=== PATIENT | male | born 1945 | race Caucasian/White ===

== ENCOUNTER 2016-10-19 06:24 | Inpatient (IN) | payer MEDICARE ==
[2016-10-19] MEDS ORDERED: LABETALOL HCL INJ 20 MG/4 ML DISP.SYRIN IV ONE ×3 (06:56→09:04)
[2016-10-19 07:13] LABS: ABSOLUTE BASOPHILS # (AUTO) 0.1 10^3/uL (0.0-0.2); ABSOLUTE EOSINOPHILS # (AUTO) 0.2 10^3/uL (0.0-0.6); ABSOLUTE LYMPHOCYTES (AUTO) 2.3 10^3/uL (0.5-4.7); ABSOLUTE MONOCYTES (AUTO) 1.1 10^3/uL (0.1-1.4); ABSOLUTE NEUT (AUTO) 5.8 10^3/uL (1.7-8.2); BASOPHILS % (AUTO) 0.9 % (0-2); EOSINOPHILS % (AUTO) 2.4 % (0-6); HEMATOCRIT 46.8 % (37.9-51.0); HEMOGLOBIN 15.6 g/dL (13.5-17.0); LYMPHOCYTES % (AUTO) 24.1 % (13-45); MEAN CORPUSCULAR HEMOGLOBIN 30.5 pg (27.0-33.4); MEAN CORPUSCULAR HGB CONC 33.4 g/dL (32.0-36.0); MEAN CORPUSCULAR VOLUME 91 fl (80-97); MONOCYTES % (AUTO) 11.8 % (3-13); RED BLOOD COUNT 5.12 10^6/uL (4.35-5.55); RED CELL DISTRIBUTION WIDTH 13.7 % (11.5-14.0); SEGMENTED NEUTROPHILS % (AUTO) 60.8 % (42-78); WHITE BLOOD COUNT 9.6 10^3/uL (4.0-10.5)
--- NOTE | 2016-10-19 07:19 | RADIOLOGY REPORT (SQ) ---
EXAM DESCRIPTION: CT HEAD WITHOUT COMPLETED DATE/TIME: 10/19/2016 7:06 am REASON FOR STUDY: right sided weakness COMPARISON: None. TECHNIQUE: Axial images acquired through the brain without intravenous contrast. Images reviewed wi th bone, brain and subdural windows. Images stored on PACS. All CT scanners at this facility use dose modulation, iterative reconstruction, and/or weight based d osing when appropriate to reduce radiation dose to as low as reasonably achievable (ALARA). [facility]: Dose Right [facility]: CareDose [facility]: Dose Right [facility]: Teradose 4D [facility]: [employer] RADIATION DOSE: Up-to-date CT equipment and radiation dose reduction techniques were employed. CTDIv ol: 55.3 mGy. DLP: 1106 mGy-cm. mGy. LIMITATIONS: None. FINDINGS: VENTRICLES: Normal size and contour. CEREBRUM: Confluent diminished white matter density of both the cerebral hemispheres. Likely lacunar infarct of the right thalamus. Lacunar infarct of the anterior right external capsule. CEREBELLUM: No masses. No hemorrhage. No alteration of density. No evidence for acute infarction. EXTRAAXIAL SPACES: No fluid collections. No masses. Atherosclerosis. ORBITS AND GLOBE: No intra- or extraconal masses. Normal contour of globe without masses. CALVARIUM: No fracture. PARANASAL SINUSES: No fluid or mucosal thickening. SOFT TISSUES: No mass or hematoma. OTHER: No other significant finding. IMPRESSION: 1. Confluent diminished white matter density may indicate advanced white matter microan giopathy. Extensive differential diagnosis includes other white matter processes. Recommend MRI of the brain. 2. Lacunar infarcts of the right basal ganglia. TECHNICAL DOCUMENTATION: JOB ID: [id number] Quality ID # [id number]: Final reports with documentation of one or more dose reduction techniques (e.g., Au tomated exposure control, adjustment of the mA and/or kV according to patient size, use of iterative reconstruction technique) 2010 [employer]- All Rights Reserved
--- NOTE | 2016-10-19 07:20 | RADIOLOGY REPORT (SQ) ---
EXAM DESCRIPTION: CHEST SINGLE VIEW COMPLETED DATE/TIME: 10/19/2016 7:12 am REASON FOR STUDY: stroke COMPARISON: None. EXAM PARAMETERS: NUMBER OF VIEWS: One view. TECHNIQUE: Single frontal radiographic view of the chest acquired. RADIATION DOSE: NA LIMITATIONS: None. FINDINGS: LUNGS AND PLEURA: No opacities, masses or pneumothorax. No pleural effusion. MEDIASTINUM AND HILAR STRUCTURES: No masses. Contour normal. HEART AND VASCULAR STRUCTURES: Heart normal in size. Normal vasculature. BONES: No acute findings. HARDWARE: None in the chest. OTHER: No other significant finding. IMPRESSION: NO ACUTE RADIOGRAPHIC FINDING IN THE CHEST. TECHNICAL DOCUMENTATION: JOB ID: [id number]
[2016-10-19 07:21] LABS: ALANINE AMINOTRANSFERASE 26 U/L (21-72); ALBUMIN 4.2 g/dL (3.5-5.0); ALKALINE PHOSPHATASE 91 U/L (38-126); ANION GAP 11 (5-19); ASPARTATE AMINO TRANSFERASE 27 U/L (17-59); BILIRUBIN,DIRECT 0.4 mg/dL (0.0-0.4); BILIRUBIN,TOTAL 0.8 mg/dL (0.2-1.3); BLOOD UREA NITROGEN 25 mg/dL (7-20); CALCIUM 9.3 mg/dL (8.4-10.2); CARBON DIOXIDE 32 mmol/L (22-30); CHLORIDE 101 mmol/L (98-107); CREATINE KINASE 46 U/L (55-170); CREATININE RESULT 1.65 mg/dL (0.52-1.25); GLUCOSE 91 mg/dL (75-110); LIPASE 218.2 U/L (23-300); MAGNESIUM 2.3 mg/dL (1.6-2.3); POTASSIUM 3.7 mmol/L (3.6-5.0); PROTHROMBIN TIME 12.6 SEC (11.4-15.4); SODIUM 144.4 mmol/L (137-145); TOTAL PROTEIN 7.9 g/dL (6.3-8.2)
[2016-10-19 07:32] LABS: CREATINE KINASE MB 1.48 ng/mL (<4.55)
[2016-10-19 07:34] LABS: TROPONIN I 0.038 ng/mL
[2016-10-19 09:01] LABS: APPEARANCE,URINE CLEAR; BILIRUBIN,URINE NEGATIVE (NEGATIVE); GLUCOSE, URINE NEGATIVE (NEGATIVE); KETONES,URINE NEGATIVE (NEGATIVE); LEUKOCYTE ESTERASE,URINE NEGATIVE (NEGATIVE); NITRITE,URINE NEGATIVE (NEGATIVE); PROTEIN,URINE 100 mg/dL (NEGATIVE); URINE SPECIFIC GRAVITY 1.005; UROBILINOGEN,URINE NEGATIVE mg/dL (<2.0)
[2016-10-19] MEDS ORDERED: LISINOPRIL 10 MG TABLET PO ONE (09:47)
--- NOTE | 2016-10-19 10:10 | ER Document Report ---
ED General - General Chief Complaint: S/S of Possible Stroke Stated Complaint: POSSIBLE STROKE Time Seen by Provider: 10/19/16 06:48 TRAVEL OUTSIDE OF THE [place] IN LAST 30 DAYS: No - HPI Patient complains to provider of: Right sided weakness hypertension Notes: Patient is coming in for evaluation of right-sided weakness. According to the patient and daughter at bedside weakness started around 10:00 night prior to arrival. Patient arrived this morning around 6 AM 7 AM. Patient states history of mini strokes in the past. Otherwise patient has no complaints denies head pain chest pain abdominal pain patient does have a history of hypertension however did not take his blood pressure medications this morning. Systolic is greater than 200 upon evaluation. Patient otherwise alert oriented patient does have slight obviously speech and drooping of the right side of the face - Related Data Allergies/Adverse Reactions: guaifenesin [From [employer] ] Allergy (Verified 10/19/16 08:05) hydrocodone [From [employer] ] Allergy (Verified 10/19/16 08:05) potassium guaiacolsulfonate [From [employer] ] Allergy (Verified 10/19/16 08:05 ) Home Medications: Current Home Medications Aspirin [Ecotrin 81 mg EC Tablet] 81 mg PO DAILY 10/19/16 [History] Atorvastatin Calcium 40 mg PO DAILY 10/19/16 [History] Dextran 70/Hypromellose/Pf [Artificial Tears Drops] 1 each OP DAILY 10/19/16 [ History] Isosorbide Mononitrate [Isosorbide Mononitrate ER] 60 mg PO DAILY 10/19/16 [ History] Latanoprost [Latanoprost] 1 drop RT_EYE DAILY 10/19/16 [History] Lisinopril 10 mg PO BID 10/19/16 [History] Prednisolone Acetate [Inflamase 1% Oph Susp 5 ml] 1 drop RT_EYE DAILY 10/19/16 [ History] Triamterene/Hydrochlorothiazid [Triamterene-Hctz 37.5-25 mg Cp] 1 each PO DAILY 10/19/16 [History] Past Medical History - Social History Smoking Status: Unknown if Ever Smoked Family History: Reviewed & Not Pertinent Past Surgical History: Reports: Hx Kidney (Renal Surgery) Review of Systems - Review of Systems Constitutional: No symptoms reported EENT: No symptoms reported Cardiovascular: No symptoms reported Respiratory: No symptoms reported Gastrointestinal: No symptoms reported Genitourinary: No symptoms reported Male Genitourinary: No symptoms reported Musculoskeletal: Other - unilateral weakness on the right side Skin: No symptoms reported Hematologic/Lymphatic: No symptoms reported Neurological/Psychological: No symptoms reported Physical Exam - Vital signs Vitals: Temp Pulse Resp BP Pulse Ox 97.8 F 58 L 22 H 229/119 H 95 10/19/16 06:37 10/19/16 06:37 10/19/16 06:37 10/19/16 06:37 10/19/16 06:37 Interpretation: Normal - General General appearance: Appears well, Alert - HEENT Head: Normocephalic, Atraumatic Eyes: Normal Pupils: PERRL - Respiratory Respiratory status: No respiratory distress Chest status: Nontender Breath sounds: Normal Chest palpation: Normal - Cardiovascular Rhythm: Regular Heart sounds: Normal auscultation Murmur: No - Abdominal Inspection: Normal Distension: No distension Bowel sounds: Normal Tenderness: Nontender Organomegaly: No organomegaly - Back Back: Normal, Nontender - Extremities General upper extremity: Normal inspection, Nontender, Normal color, Normal ROM , Normal temperature General lower extremity: Normal inspection, Nontender, Normal color, Normal ROM , Normal temperature, Normal weight bearing. No: Fifi's sign - Neurological Neuro grossly intact: Yes Cognition: Normal Orientation: AAOx4 Sridhar Coma Scale Eye Opening: Spontaneous Mcdade Coma Scale Verbal: Oriented Mcdade Coma Scale Motor: Obeys Commands Sridhar Coma Scale Total: 15 Speech: Normal Motor strength normal: LUE, RUE, LLE, RLE Additional motor exam normals: Pronator drift. No: Equal residential plumber - Greater than right Sensory: Normal - Psychological Associated symptoms: Normal affect, Normal mood - Skin Skin Temperature: Warm Skin Moisture: Dry Skin Color: Normal Course - Re-evaluation Re-evalutation: 10/19/16 14:29 Patient examination is consistent with a stroke. CAT scan does show small chronic linear infarcts and diffuse white matter disease. Patient understands that at this time he is not a candidate for any thrombolytic therapy and that he is out of the window for time. Continue to get smaller doses of labetalol to lower the patient's blood pressure. Currently waiting on the family member to bring back current medications patient will be admitted to the hospitalist service for his stroke - Vital Signs Vital signs: Temp Pulse Resp BP Pulse Ox 98.2 F 63 16 145/91 H 99 10/19/16 13:30 10/19/16 13:30 10/19/16 13:30 10/19/16 13:30 10/19/16 13:30 - Laboratory Result Diagrams: 10/19/16 06:33 10/19/16 06:33 Laboratory results interpreted by me: 10/19/16 10/19/16 06:33 08:50 Carbon Dioxide 32 H BUN 25 H Creatinine 1.65 H Est GFR ( Amer) 50 L Est GFR (Non-Af Amer) 41 L Creatine Kinase 46 L Urine Protein 100 H Critical Care Note - Critical Care Note Total time excluding time spent on procedures (mins): 35 Comments: Multiple evaluations for stroke Discharge - Discharge Clinical Impression: right upper extremity weakness, Right lower extremity weakness, Facial drooping right side Hypertension Qualifiers: Hypertension type: essential hypertension Qualified Code(s): I10 - Essential ( primary) hypertension Admitting Provider: Hospitalist - [facility] Unit Admitted: [facility] ED NIH Stroke Scale - NIH Stroke Scale *: 1. NIH scale should be completed with appropriate accompanying assessment tools. *: 2. The NIH should reflect what the patient is capable of doing and should not be coached by the clinician. 1a. Level of Consciousness: 0=Alert;keenly responsive -: 1=Drowsy -: 2=Obtunded -: 3=Coma/unresponsive or reflex to noxious stimuli. 1a. Responses: 0 1b. Orientation Questions: a. What month is it? -: b. How old are you? -: 0=Answers both questions correctly. -: 1=Answers one question correctly or patient is intubated or has orotracheal trauma. -: 2=Answers neither question correctly. 1b. Responses: 0 1c. Response to commands: a. Open and close eyes? -: b. Tape Deck Installer and release hand? -: Credit is given despite weakness. Demonstration of task is permitted. Substitute command if hands cannot be used. -: 0=Performs both tasks correctly -: 1=Performs one task correctly -: 2=Performs neither task correctly 1c. Responses: 0 2. Gaze: Establish eye contact and instruct patient to "Follow my finger" -: 0=Normal -: 1=Partial gaze palsy. Gaze is abnormal in one or both eyes, but where forced deviation or total gaze paresis is not present. -: 2=Forced deviation or total gaze paresis. 2. Responses: 0 3. Visual Cannon: Sees fingers in all four quadrants. -: 0=No visual loss. -: 1=Partial hemianopsia. -: 2=Complete hemianopsia. -: 3=Bilateral hemianopsia (including Cortical blindness) 3. Responses: 0 4. Facial Movement: Instruct patient to: -: a. Show me your teeth -: b. Raise your eyebrows -: c. Close your eyes -: d. Smile -: 0=Normal symmetrical movement -: 1=Minor paralysis (flattened nasolabial fold, asymmetry on smiling). -: 2=Partial paralysis (total or near total paralysis of lower face). -: 3=Complete paralysis of upper and lower face 4. Responses: 1 5. Motor functions (left arm): Alternate sides and extend each arm with palms down (90 degrees if sitting or 45 degrees for supine). -: 0=No drift;limb holds for full 10 seconds. -: 1=Drift; limb holds but drifts down before full 10 seconds, but does not hit bed. -: 2=Some effort against gravity; limb cannot get to or maintain position. -: 3=No effort against gravity; limb falls. -: 4=No movement. -: UN=Amputation, joint fusion, explain in comments. 5. Responses (left arm): 0 5. Motor Functions (right arm): Alternate sides and extend each arm with palms down (90 degrees if sitting or 45 degrees for supine). -: 0=No drift;limb holds for full 10 seconds. -: 1=Drift; limb holds but drifts down before full 10 seconds, but does not hit bed. -: 2=Some effort against gravity; limb cannot get to or maintain position. -: 3=No effort against gravity; limb falls. -: 4=No movement. -: UN=Amputation, joint fusion, explain in comments. 5. Responses (right arm): 1 6. Motor Functions (left leg): With patient lying supine, alternate sides and extend each leg (30 degrees always while supine). -: 0=No drift, leg holds position for full 5 seconds -: 1=Drift; leg falls before full 5 seconds but does not hit bed. -: 2=Some effort against gravity, leg falls to bed but some effort against gravity. -: 3=No effort against gravity, leg falls to bed immediately. -: 4=No movement. -: UN=Amputation, joint fusion; explain in comments. 6. Responses (left leg): 0 6. Motor Functions (right leg): With patient lying supine, alternate sides and extend each leg (30 degrees always while supine). -: 0=No drift, leg holds position for full 5 seconds -: 1=Drift; leg falls before full 5 seconds but does not hit bed. -: 2=Some effort against gravity, leg falls to bed but some effort against gravity. -: 3=No effort against gravity, leg falls to bed immediately. -: 4=No movement. -: UN=Amputation, joint fusion; explain in comments. 6. Responses (right leg): 1 7. Limb Ataxia: With eyes open instruct patient to: -: a. "Touch your finger to your nose". -: b. "Touch your heel to your rudd" -: 0=Absent -: 1=Present in one limb. -: 2=Present in two limbs. -: UN=Amputation or joint fusion; explain in comments. 7. Responses: 0 8. Sensory: Test sensation using pinprick or noxious stimuli. Test as many body parts as possible. -: 0=Normal;no sensory loss -: 1=Mile to moderate sensory loss (patient feels pin prick but is less sharp on affected side). -: 2=Severe or total sensory loss. 8. Responses: 0 9. Best Language: Instruct patient to: -: a. "Describe what you see in this picture." -: b. "Name the items in this picture." -: c. "Read these sentences." -: 0=No aphasia, normal -: 1=Mild to moderate aphasia. -: 2=Severe aphasia -: 3=Mute, global aphasia, no usable speech or auditory comprehension. 9. Responses: 0 10. Articulation, Dysarthia: Instruct patient to: -: "Read these words" or "Repeat these words" -: 0=Normal -: 1=Mild to moderate; patient may slur some words but can be understood without difficulty. -: 2=Severe; patients speech so slurred as to be unintelligible in the absence of dysphasia. -: UN=Intubated or other physical barrier, explain in comments. 10. Responses: 1 11. Extinction or inattention: 0=No abnormality -: 1= Visual, tactile, auditory, spatial, or personal inattention or extinction to bilateral simulation in one or the sensory modalities. -: 2=Profound kandy-inattention or kandy-inattention to more than one modality; does not recognize own hand. 11. Responses: 0 Total Score: 4
[2016-10-19] MEDS ORDERED: ALBUTEROL SULFATE 0.083% NEB 2.5 MG/3 ML AMPUL NEB PRN (10:25)
[2016-10-19] MEDS ORDERED: ONDANSETRON HCL INJ/PF 4 MG/2 ML SDV IV PRN (10:25)
--- NOTE | 2016-10-19 10:49 | PDOC H&P ---
History of Present Illness Admission Date/PCP: MARIO STOUT MD Patient complains of: Right hand weakness History of Present Illness: LOLA JANG is a 70 year old male has had a previous CVA by his report who presents with right sided weakness. Patient reports that around 2 AM last night he began to experience right hand weakness was having trouble using it. He went to sleep when he awoke this morning his right hand weakness is worse and he also had dysarthria and right-sided facial droop and right leg involvement. The patient had a head CT that does not show any acute event. Patient does report that he has been taking aspirin 81 mg daily and he has been compliant with his medications. The patient denies any dysphasia. He has blindness in his right eye but that has been present prior to this acute episode. He also was noted to have very elevated blood pressures. The patient has received both labetalol and his usual lisinopril dose in the emergency room. The patient denies any sensory changes. He denies any bowel or bladder dysfunction. Denies having any fevers or chills. The patient has Imdur present in his medication bag and when asked if he had any cardiac issues he denied knowing whether or not he had any heart issues. Past Medical History Cardiac Medical History: Reports: Hyperlipidema, Hypertension, Other - Is on Imdur but denies having any coronary disease. 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 Endocrine Medical History: Reports: None Renal/ Medical History: Reports: Other - Patient reports having kidney cancer and is status post right nephrectomy Malignancy Medical History: Reports: Renal (Kidney) Cancer GI Medical History: Reports: None Skin Medical History: Reports: None Psychiatric Medical History: Reports: None Hematology: Reports: None Infectious Medical History: Reports: None Past Surgical History Past Surgical History: Reports: Other - Right nephrectomy for renal cell carcinoma Social History Information Source: Patient Lives with: Alone Smoking Status: Never Smoker Frequency of Alcohol Use: None Hx Recreational Drug Use: No Drugs: None Hx Prescription Drug Abuse: No - Advance Directive Resuscitation Status: Full Code Surrogate healthcare decision maker:: His daughter jadon Family History Family History: Hypertension Parental Family History Reviewed: Yes Children Family History Reviewed: No Sibling(s) Family History Reviewed.: No Medication/Allergy Home Medications: Aspirin [Ecotrin 81 mg EC Tablet] 81 mg PO DAILY 10/19/16 Atorvastatin Calcium 40 mg PO DAILY 10/19/16 Dextran 70/Hypromellose/Pf [Artificial Tears Drops] 1 each OP DAILY 10/19/16 Isosorbide Mononitrate [Isosorbide Mononitrate ER] 60 mg PO DAILY 10/19/16 Latanoprost [Latanoprost] 1 drop RT_EYE DAILY 10/19/16 Lisinopril 10 mg PO BID 10/19/16 Prednisolone Acetate [Inflamase 1% Oph Susp 5 ml] 1 drop RT_EYE DAILY 10/19/16 Triamterene/Hydrochlorothiazid [Triamterene-Hctz 37.5-25 mg Cp] 1 each PO DAILY 10/19/16 Allergies/Adverse Reactions: guaifenesin [From [employer] ] Allergy (Verified 10/19/16 08:05) hydrocodone [From [employer] ] Allergy (Verified 10/19/16 08:05) potassium guaiacolsulfonate [From [employer] ] Allergy (Verified 10/19/16 08:05 ) Review of Systems Constitutional: ABSENT: chills, fever(s), headache(s), weight gain, weight loss Eyes: PRESENT: other - Right eye blindness Ears: ABSENT: hearing changes Nose, Mouth, and Throat: ABSENT: headache(s), mouth pain, sore throat, vertigo Cardiovascular: ABSENT: chest pain, dyspnea on exertion, edema, orthropnea, palpitations Respiratory: ABSENT: cough, hemoptysis Gastrointestinal: ABSENT: abdominal pain, constipation, diarrhea, hematemesis, hematochezia, nausea, vomiting Genitourinary: ABSENT: dysuria, hematuria Musculoskeletal: ABSENT: joint swelling Integumentary: ABSENT: rash, wounds Neurological: PRESENT: as per HPI Psychiatric: ABSENT: anxiety, depression Endocrine: ABSENT: cold intolerance, heat intolerance, polydipsia, polyuria Hematologic/Lymphatic: ABSENT: easy bleeding, easy bruising Physical Exam Vital Signs: Temp Pulse Resp BP Pulse Ox 97.8 F 57 L 20 229/106 H 93 10/19/16 06:37 10/19/16 07:52 10/19/16 08:06 10/19/16 08:06 10/19/16 08:06 Intake & Output 10/18/16 10/19/16 10/20/16 06:59 06:59 06:59 Weight 86.183 kg General appearance: PRESENT: no acute distress, well-developed, well-nourished Head exam: PRESENT: atraumatic, normocephalic Eye exam: PRESENT: conjunctiva pink, EOMI, PERRLA. ABSENT: scleral icterus Ear exam: PRESENT: normal external ear exam Mouth exam: PRESENT: moist, tongue midline Neck exam: PRESENT: carotid bruit - right Sided carotid bruit. ABSENT: JVD, lymphadenopathy, thyromegaly Respiratory exam: PRESENT: clear to auscultation disha. ABSENT: rales, rhonchi, wheezes Cardiovascular exam: PRESENT: RRR, systolic murmur - 3/6 systolic murmur.. ABSENT: diastolic murmur, rubs Pulses: PRESENT: normal dorsalis pedis pul Vascular exam: PRESENT: normal capillary refill GI/Abdominal exam: PRESENT: normal bowel sounds, soft. ABSENT: distended, guarding, mass, organolmegaly, rebound, tenderness Rectal exam: PRESENT: deferred Extremities exam: ABSENT: calf tenderness, clubbing, pedal edema Neurological exam: PRESENT: alert, awake, oriented to person, oriented to place , oriented to time, oriented to situation, motor sensory deficit - Strength is 3 out of 5 on the right upper and lower extremities. Normal light touch.. ABSENT: CN II-XII grossly intact - right-sided facial droop. Psychiatric exam: PRESENT: appropriate affect Skin exam: PRESENT: dry, intact, warm. ABSENT: cyanosis, rash Results Laboratory Results: 10/19/16 06:33 10/19/16 06:33 10/19/16 10/19/16 10/19/16 06:33 06:33 08:50 WBC 9.6 RBC 5.12 Hgb 15.6 Hct 46.8 MCV 91 MCH 30.5 MCHC 33.4 RDW 13.7 Plt Count 274 Seg Neutrophils % 60.8 Lymphocytes % 24.1 Monocytes % 11.8 Eosinophils % 2.4 Basophils % 0.9 Absolute Neutrophils 5.8 Absolute Lymphocytes 2.3 Absolute Monocytes 1.1 Absolute Eosinophils 0.2 Absolute Basophils 0.1 Sodium 144.4 Potassium 3.7 Chloride 101 Carbon Dioxide 32 H Anion Gap 11 BUN 25 H Creatinine 1.65 H Est GFR ( Amer) 50 L Est GFR (Non-Af Amer) 41 L Glucose 91 Calcium 9.3 Magnesium 2.3 Total Bilirubin 0.8 AST 27 ALT 26 Alkaline Phosphatase 91 Total Protein 7.9 Albumin 4.2 Lipase 218.2 Urine Color STRAW Urine Appearance CLEAR Urine pH 9.0 Ur Specific Maddock 1.005 Urine Protein 100 H Urine Glucose (UA) NEGATIVE Urine Ketones NEGATIVE Urine Blood NEGATIVE Urine Nitrite NEGATIVE Ur Leukocyte Esterase NEGATIVE Urine WBC (Auto) 0 Urine RBC (Auto) 1 10/19/16 10/19/16 06:33 06:33 Creatine Kinase 46 L CK-MB (CK-2) 1.48 Troponin I 0.038 Impressions: Chest X-Ray 10/19/16 06:48 IMPRESSION: NO ACUTE RADIOGRAPHIC FINDING IN THE CHEST. Head CT 10/19/16 06:49 IMPRESSION: 1. Confluent diminished white matter density may indicate advanced white matter microangiopathy. Extensive differential diagnosis includes other white matter processes. Recommend MRI of the brain. 2. Lacunar infarcts of the right basal ganglia. Assessment & Plan - Diagnosis (1) CVA (cerebral vascular accident) Is this a current diagnosis for this admission?: YesPlan: Patient has right sided weakness along with facial droop and dysarthria are consistent with an acute CVA. Patient has been taking aspirin 81 mg daily. We will increase aspirin to 325 mg daily. Will get an echocardiogram, carotid Doppler, MRI. Will also consult PT OT and speech therapy. (2) ARF (acute renal failure) Is this a current diagnosis for this admission?: YesPlan: We did not have any old lab values to see if this truly is acute or if this is chronic renal failure. He has been on hydrochlorothiazide we will hold that and give IV fluids overnight. (3) Hyperlipidemia Is this a current diagnosis for this admission?: YesPlan: Continue with his Lipitor that he has been taking as an outpatient (4) Hypertension Qualifiers: Hypertension type: essential hypertension Qualified Code(s): I10 - Essential (primary) hypertension Is this a current diagnosis for this admission?: YesPlan: Blood pressures were very elevated when he presented to [facility] to 29 for 110. We will continue to give lisinopril orally and as needed labetalol. Reports that he has had normal blood pressures as an outpatient. - Time Time Spent: 50 to 70 Minutes - Inpatient Certification Medical Necessity: Need for Neurological Checks
[2016-10-19] MEDS ORDERED: ISOSORBIDE MONONITRATE 30 MG TAB.ER.24H PO ONE (11:30)
[2016-10-19] MEDS ORDERED: ASPIRIN 325 MG TABLET PO ONE (11:30)
[2016-10-19] MEDS ORDERED: ATORVASTATIN CALCIUM 40 MG TABLET PO ONE (11:30)
[2016-10-19] MEDS ORDERED: ENOXAPARIN SODIUM INJ 40 MG/0.4 ML DISP.SYRIN SUBCUT ONE (11:30)
[2016-10-19] MEDS ORDERED: FAMOTIDINE 20 MG TABLET PO ONE (11:30)
[2016-10-19] MEDS: LABETALOL HCL INJ 20 MG/4 ML DISP.SYRIN IV PRN (11:34)
[2016-10-19] MEDS: NORMAL SALINE 1000 ML 1,000 ML IV PRN ×2 (11:35→22:21)
[2016-10-19 11:42] LABS: CREATINE KINASE MB 1.58 ng/mL (<4.55); TROPONIN I 0.031 ng/mL
[2016-10-19] MEDS ORDERED: LATANOPROST 0.005% OPH SOLN 2.5 ML OP ONE (12:00)
--- NOTE | 2016-10-19 12:02 | RADIOLOGY REPORT (SQ) ---
EXAM DESCRIPTION: CAROTID DOPPLER COMPLETED DATE/TIME: 10/19/2016 11:43 am REASON FOR STUDY: acute neurologic syndrome COMPARISON: None. TECHNIQUE: Grayscale ultrasound, Doppler velocity and spectra, and color Doppler images acquired of the extra-cranial carotid and vertebral arteries. Images stored on PACS. LIMITATIONS: None. FINDINGS: RIGHT CAROTID CCA Velocities: Within normal limits. ICA Velocities Peak systolic 0.62 m/s. End diastolic 0.19 m/s. Proximal ICA/CCA peak systolic ratio 1.1. Heterogeneous calcified plaque with shadowing. LEFT CAROTID CCA Velocities: Within normal limits. ICA Velocities Peak systolic 0.72 m/s. End diastolic 0.24 m/s. Proximal ICA/CCA peak systolic ratio 1.3. Heterogeneous calcified plaque with shadowing. VERTEBRAL ARTERIES: Antegrade flow. Normal waveforms. SUBCLAVIAN ARTERIES: No finding. OTHER: No other significant finding. IMPRESSION: NO HEMODYNAMICALLY SIGNIFICANT STENOSIS. COMMENT: Quality ID #[id number]: Velocity criteria are extrapolated from the diameter data as defined by t he Society of Radiologists in Ultrasound Consensus Conference. Radiology 2003: 229; 340-346. TECHNICAL DOCUMENTATION: JOB ID: [id number] [email or web address]- All Rights Reserved
--- NOTE | 2016-10-19 17:19 | RADIOLOGY REPORT (SQ) ---
EXAM DESCRIPTION: MRI HEAD WITHOUT COMPLETED DATE/TIME: 10/19/2016 4:59 pm REASON FOR STUDY: acute neurologic syndrome COMPARISON: Brain CT scan dated 10/19/2016 TECHNIQUE: Multiplanar imaging includes non-contrasted T1, T2, FLAIR, and diffusion with ADC map seq uences. Images stored on PACS. LIMITATIONS: None. FINDINGS: ANATOMY: No anomalies. Normal vascular flow voids. Pituitary fossa normal. CSF SPACES: Atrophy induced prominence of ventricles and CSF spaces. CEREBRUM: High signal intensity confluent areas scattered throughout the white matter on FLAIR imagin g with distribution suggesting micro-vascular ischemic changes. Other etiologies including a demyeli nating process cannot be excluded. Couple old lacunar infarcts in the region of the basal ganglia on the right are identified. No evidence of hemorrhage, mass, or extraaxial fluid collection. POSTERIOR FOSSA: No signal alteration. No hemorrhage. No edema, masses or mass effect. Internal cesia tory canals, cerebello-pontine angles, mastoids normal. DIFFUSION IMAGING: There is a focal area of abnormal signal intensity in the basal ganglia on the lef t consistent with an area of recent infarction. ORBITS: No masses. Globes normal. PARANASAL SINUSES: No fluid levels. Mucosa normal. OTHER: No other significant finding. IMPRESSION: ATROPHY AND CHRONIC MICRO-VASCULAR ISCHEMIC CHANGES. Other white matter disease process es such as a demyelinating process cannot be excluded. Focal area of abnormal signal intensity in th e basal ganglia on the left consistent with an area of recent infarction. Other findings as noted ab pavon TECHNICAL DOCUMENTATION: JOB ID: [id number]- All Rights Reserved
[2016-10-19] MEDS: ACETAMINOPHEN 325 MG TABLET PO PRN (17:35)
[2016-10-19 17:55] LABS: CREATINE KINASE MB 1.27 ng/mL (<4.55); TROPONIN I 0.051 ng/mL
--- NOTE | 2016-10-19 20:30 | EKG REPORT ---
SEVERITY:- ABNORMAL ECG - SINUS RHYTHM FIRST DEGREE AV BLOCK LVH WITH IVCD, LAD AND SECONDARY REPOL ABNRM : Confirmed by: Stephane Chew MD 19-Oct-2016 20:29:02
[2016-10-19] MEDS: FAMOTIDINE 20 MG TABLET PO SCH (21:17)
[2016-10-19] MEDS: LISINOPRIL 10 MG TABLET PO SCH (21:17)
[2016-10-19 23:47] LABS: CREATINE KINASE MB 1.12 ng/mL (<4.55); TROPONIN I 0.052 ng/mL
[2016-10-20 04:48] LABS: HEMATOCRIT 38.7 % (37.9-51.0); HGB HCT DIFFERENCE -0.3; MEAN CORPUSCULAR HEMOGLOBIN 30.1 pg (27.0-33.4); MEAN CORPUSCULAR HGB CONC 33.1 g/dL (32.0-36.0); MEAN CORPUSCULAR VOLUME 91 fl (80-97); RED BLOOD COUNT 4.25 10^6/uL (4.35-5.55); RED CELL DISTRIBUTION WIDTH 13.4 % (11.5-14.0); WHITE BLOOD COUNT 11.3 10^3/uL (4.0-10.5)
[2016-10-20 04:51] LABS: HEMOGLOBIN 12.8 g/dL (13.5-17.0)
[2016-10-20 04:53] LABS: ANION GAP 9 (5-19); BLOOD UREA NITROGEN 26 mg/dL (7-20); CALCIUM 8.5 mg/dL (8.4-10.2); CARBON DIOXIDE 27 mmol/L (22-30); CHLORIDE 106 mmol/L (98-107); CREATININE RESULT 1.93 mg/dL (0.52-1.25); GLUCOSE 81 mg/dL (75-110); POTASSIUM 3.4 mmol/L (3.6-5.0)
[2016-10-20] MEDS: ENOXAPARIN SODIUM INJ 40 MG/0.4 ML DISP.SYRIN SUBCUT SCH (07:44)
[2016-10-20] MEDS: NORMAL SALINE 1000 ML 1,000 ML IV PRN (07:45)
[2016-10-20] MEDS: ATORVASTATIN CALCIUM 40 MG TABLET PO SCH (09:24)
[2016-10-20] MEDS: POLYVINYL ALCOHOL 1.4% OPH SOLN 15 ML OU SCH (09:24)
[2016-10-20] MEDS: ASPIRIN 325 MG TABLET PO SCH (09:24)
[2016-10-20] MEDS: FAMOTIDINE 20 MG TABLET PO SCH ×2 (09:24→22:17)
[2016-10-20] MEDS: ISOSORBIDE MONONITRATE 30 MG TAB.ER.24H PO SCH (09:24)
[2016-10-20] MEDS: LISINOPRIL 10 MG TABLET PO SCH ×2 (09:24→22:36)
[2016-10-20] MEDS ORDERED: DEXTRAN OP SCH (10:00)
[2016-10-20] MEDS ORDERED: HYPROMELLOSE OP SCH (10:00)
[2016-10-20] MEDS ORDERED: PREDNISOLONE ACETATE 1% OPH SUSP 5 ML OP SCH (10:00)
[2016-10-20] MEDS: LATANOPROST 0.005% OPH SOLN 2.5 ML OP SCH (10:06)
--- NOTE | 2016-10-20 13:25 | PDOC PROGRESS REPORT ---
Subjective Progress Note for:: 10/20/16 Subjective:: Denies any complaints Physical Exam Vital Signs: Temp Pulse Resp BP Pulse Ox 97.3 F 55 L 16 177/80 H 97 10/20/16 11:16 10/20/16 12:00 10/20/16 12:00 10/20/16 12:00 10/20/16 12:00 Intake & Output 10/19/16 10/20/16 10/21/16 06:59 06:59 06:59 Intake Total 2189 200 Output Total 600 500 Balance 1589 -300 Weight 86.8 kg General appearance: PRESENT: no acute distress Eye exam: PRESENT: conjunctiva pink Mouth exam: PRESENT: moist, tongue midline Neck exam: ABSENT: JVD Respiratory exam: PRESENT: clear to auscultation disha. ABSENT: rales, rhonchi, wheezes Cardiovascular exam: PRESENT: RRR. ABSENT: diastolic murmur, rubs, systolic murmur GI/Abdominal exam: PRESENT: normal bowel sounds, soft. ABSENT: distended, guarding, mass, organolmegaly, rebound, tenderness Extremities exam: ABSENT: calf tenderness, clubbing, pedal edema Neurological exam: PRESENT: alert, awake, oriented to person, oriented to place , oriented to time, oriented to situation, CN II-XII grossly intact, motor sensory deficit - Strength 2 out of 5 right upper and lower extremity. Also with right-sided facial droop Psychiatric exam: PRESENT: appropriate affect Skin exam: PRESENT: dry, intact, warm. ABSENT: cyanosis, rash Results Laboratory Results: 10/20/16 03:52 10/20/16 03:52 10/20/16 10/20/16 03:52 03:52 WBC 11.3 H RBC 4.25 L Hgb 12.8 L D Hct 38.7 MCV 91 MCH 30.1 MCHC 33.1 RDW 13.4 Plt Count 219 Sodium 142.0 Potassium 3.4 L Chloride 106 Carbon Dioxide 27 Anion Gap 9 BUN 26 H Creatinine 1.93 H Est GFR ( Amer) 42 L Est GFR (Non-Af Amer) 34 L Glucose 81 Calcium 8.5 10/19/16 10/19/16 10/19/16 10:58 10:58 17:22 Creatine Kinase 46 L 49 L CK-MB (CK-2) 1.58 Troponin I 0.031 10/19/16 10/19/16 10/19/16 17:22 23:00 23:09 Creatine Kinase 79 CK-MB (CK-2) 1.27 1.12 Troponin I 0.051 0.052 Impressions: Chest X-Ray 10/19/16 06:48 IMPRESSION: NO ACUTE RADIOGRAPHIC FINDING IN THE CHEST. Head CT 10/19/16 06:49 IMPRESSION: 1. Confluent diminished white matter density may indicate advanced white matter microangiopathy. Extensive differential diagnosis includes other white matter processes. Recommend MRI of the brain. 2. Lacunar infarcts of the right basal ganglia. Carotid Doppler Study 10/19/16 10:31 IMPRESSION: NO HEMODYNAMICALLY SIGNIFICANT STENOSIS. Head MRI 10/19/16 10:32 IMPRESSION: ATROPHY AND CHRONIC MICRO-VASCULAR ISCHEMIC CHANGES. Other white matter disease processes such as a demyelinating process cannot be excluded. Focal area of abnormal signal intensity in the basal ganglia on the left consistent with an area of recent infarction. Other findings as noted above Assessment & Plan - Diagnosis (1) CVA (cerebral vascular accident) Is this a current diagnosis for this admission?: YesPlan: Patient has right sided weakness along with facial droop and dysarthria are consistent with an acute CVA. Patient has been taking aspirin 81 mg daily. We will increase aspirin to 325 mg daily. Doppler showed no significant stenosis. MRI confirms the acute CVA. Echocardiogram results are pending. Continue with PT, OT and speech therapy (2) ARF (acute renal failure) Is this a current diagnosis for this admission?: YesPlan: We did not have any old lab values to see if this truly is acute or if this is chronic renal failure. He has been on hydrochlorothiazide we will hold that and continue IV fluids. (3) Hyperlipidemia Is this a current diagnosis for this admission?: YesPlan: Continue with his Lipitor that he has been taking as an outpatient (4) Hypertension Qualifiers: Hypertension type: essential hypertension Qualified Code(s): I10 - Essential (primary) hypertension Is this a current diagnosis for this admission?: YesPlan: Blood pressures were very elevated when he presented to size to 29 for 110. We will continue to give lisinopril orally and as needed labetalol. Reports that he has had normal blood pressures as an outpatient. - Time Time Spent with patient: 25-34 minutes - Inpatient Certification Medical Necessity: Need Close Monitoring Due to Risk of Patient Decompensation - Plan Summary Plan Summary: We will consult social work for consideration of rehab
--- NOTE | 2016-10-20 17:56 | XCELERA REPORT ---
[address] [address] Transthoracic Echocardiogram Report Name: LOLA JANG Age: 70 yrs Gender: Male : 1945 Patient Status: Inpatient Patient Location: [id number] Study Date: 10/20/2016 10:16 AM Height: 72 in Weight: 190 lb BSA: 2.1 m2 Procedure: A two-dimensional transthoracic echocardiogram with color flow and Doppler was performed. Study Quality: Technically suboptimal. Images were not obtained from all of the standard acoustic windows due to the limited scope of the study. Reason For Study: cva History: CVA. Ordering Physician: JENNA BOYLE Performed By: Denise Love Interpretation Summary There is no obvious cardiac source of embolus noted on this transthoracic echocardiogram. Follow-up with a SHIRLEY is suggested if cardiac source is still suspected. The left ventricle is normal in size. There is normal left ventricular wall thickness. LV EF is 65% Left ventricular systolic function is normal. No 'true' apical 2 chamber views obtained.Hence canot coment on the basal andnaapical inferior anddthebasal and apical anterior webb.The mid anterior and the mid inferor webb and the rest of the LV webb contract normally. The right ventricle is not well visualized secondary to technical limitations The left atrial size is normal. There is no evidence of mitral valve prolapse. There is no mitral valve stenosis. There is a trace amount of mitral regurgitation There is no aortic valvular vegetation. There is a peak gradient of 43 mm of Hg. There is moderate aortic stenosis There is no LVOT obstruction. No aortic regurgitation is present. The aortic valve is moderately calcified There is no tricuspid stenosis. There is a trace amount of tricuspid regurgitation Right ventricular systolic pressure is normal. RVSP is 27 mm of Hg , with RA mean of 5. There is no pericardial effusion. There is no obvious cardiac source of embolus noted on this transthoracic echocardiogram. Follow-up with a SHIRLEY is suggested if cardiac source is still suspected MMode/2D Measurements \T\ Calculations RVDd: 3.2 cm LVIDd: 5.3 cmFS: 38.4 % Ao root diam: 3.3 cm IVSd: 1.0 cm LVIDs: 3.2 cmEDV(Teich): 133.7 ml LVPWd: 1.0 cmESV(Teich): 42.5 ml Ao root area: 8.7 cm2 EF(Teich): 68.2 % LVOT diam: 2.7 cm LVOT area: 5.9 cm2 Doppler Measurements \T\ Calculations MV E max alberto: MV dec slope: Ao V2 max: LV V1 max P.6 cm/sec 203.8 cm/sec2 318.1 cm/sec 2.3 mmHg MV A max alberto: MV dec time: Ao max PG: LV V1 mean P.2 cm/sec 0.35 sec 40.6 mmHg 1.2 mmHg MV E/A: 0.77 Ao V2 mean: LV V1 max: 231.0 cm/sec 76.2 cm/sec Ao mean PG: LV V1 mean: 23.8 mmHg 50.5 cm/sec Ao V2 VTI: 75.7 cm LV V1 VTI: HINA(I,D): 1.3 cm2 17.0 cm HINA(V,D): 1.4 cm2 SV(LVOT): 100.7 ml PA V2 max: TR max alberto: 86.4 cm/sec 226.2 cm/sec PA max P.0 mmHg TR max P.6 mmHg Left Ventricle The left ventricle is normal in size. There is normal left ventricular wall thickness. LV EF is 65%. Left ventricular systolic function is normal. Doppler measurements suggest impaired left ventricular relaxation, which is associated with grade I/IV or mild diastolic dysfunction. No 'true' apical 2 chamber views obtained.Hence canot coment on the basal andnaapical inferior anddthebasal and apical anterior webb.The mid anterior and the mid inferor webb and the rest of the LV webb contract normally. Right Ventricle The right ventricle is not well visualized secondary to technical limitations. Atria The right atrium is normal. The left atrial size is normal. Mitral Valve There is no evidence of mitral valve prolapse. There is no vegetation seen on the mitral valve. There is no mitral valve stenosis. There is a trace amount of mitral regurgitation. Aortic Valve The aortic valve is moderately calcified. There is no aortic valvular vegetation. There is a peak gradient of 43 mm of Hg. There is moderate aortic stenosis. There is no LVOT obstruction. No aortic regurgitation is present. Tricuspid Valve There is no tricuspid stenosis. There is a trace amount of tricuspid regurgitation. Right ventricular systolic pressure is normal. RVSP is 27 mm of Hg , with RA mean of 5. Pulmonic Valve There is no pulmonic valvular stenosis. There is no pulmonic valvular regurgitation. Great Vessels The aortic root is not well visualized. Effusions There is no pericardial effusion. : JENNA BOYLE > Reena Gonzalez
[2016-10-20] MEDS: LABETALOL HCL INJ 20 MG/4 ML DISP.SYRIN IV PRN (20:26)
[2016-10-20] MEDS: ACETAMINOPHEN 325 MG TABLET PO PRN (22:37)
[2016-10-21] MEDS ORDERED: HYDRALAZINE HCL INJ/PF 20 MG/1 ML SDV ONE (02:01)
[2016-10-21] MEDS ORDERED: HYDRALAZINE HCL INJ/PF 20 MG/1 ML SDV IV PRN (02:11)
[2016-10-21] MEDS ORDERED: HYDRALAZINE HCL INJ/PF 20 MG/1 ML SDV IV ONE (02:15)
[2016-10-21] MEDS: NORMAL SALINE 1000 ML 1,000 ML IV PRN (02:36)
[2016-10-21 05:45] LABS: ABSOLUTE BASOPHILS # (AUTO) 0.1 10^3/uL (0.0-0.2); ABSOLUTE EOSINOPHILS # (AUTO) 0.2 10^3/uL (0.0-0.6); ABSOLUTE LYMPHOCYTES (AUTO) 1.9 10^3/uL (0.5-4.7); ABSOLUTE MONOCYTES (AUTO) 1.5 10^3/uL (0.1-1.4); ABSOLUTE NEUT (AUTO) 7.7 10^3/uL (1.7-8.2); HEMATOCRIT 42.6 % (37.9-51.0); HEMOGLOBIN 14.3 g/dL (13.5-17.0); HGB HCT DIFFERENCE 0.3; LYMPHOCYTES % (AUTO) 16.4 % (13-45); MEAN CORPUSCULAR HEMOGLOBIN 30.5 pg (27.0-33.4); MEAN CORPUSCULAR HGB CONC 33.6 g/dL (32.0-36.0); MEAN CORPUSCULAR VOLUME 91 fl (80-97); MONOCYTES % (AUTO) 12.8 % (3-13); RED CELL DISTRIBUTION WIDTH 13.5 % (11.5-14.0); SEGMENTED NEUTROPHILS % (AUTO) 67.8 % (42-78); WHITE BLOOD COUNT 11.4 10^3/uL (4.0-10.5)
[2016-10-21 06:09] LABS: ANION GAP 10 (5-19); BLOOD UREA NITROGEN 20 mg/dL (7-20); CARBON DIOXIDE 26 mmol/L (22-30); CHLORIDE 109 mmol/L (98-107); CREATININE RESULT 1.63 mg/dL (0.52-1.25); GLUCOSE 97 mg/dL (75-110); POTASSIUM 3.4 mmol/L (3.6-5.0)
[2016-10-21] MEDS: ENOXAPARIN SODIUM INJ 40 MG/0.4 ML DISP.SYRIN SUBCUT SCH (08:34)
[2016-10-21] MEDS: LABETALOL HCL INJ 20 MG/4 ML DISP.SYRIN IV PRN ×2 (08:34→15:18)
[2016-10-21] MEDS ORDERED: LORAZEPAM 0.5 MG TABLET PO ONE (09:30)
[2016-10-21] MEDS: POLYVINYL ALCOHOL 1.4% OPH SOLN 15 ML OU SCH (10:14)
[2016-10-21] MEDS: PREDNISOLONE ACETATE 1% OPH SUSP 5 ML OD SCH (10:14)
[2016-10-21] MEDS: ISOSORBIDE MONONITRATE 30 MG TAB.ER.24H PO SCH (10:18)
[2016-10-21] MEDS: FAMOTIDINE 20 MG TABLET PO SCH ×2 (10:19→22:39)
[2016-10-21] MEDS: AMLODIPINE BESYLATE 5 MG TABLET PO SCH (10:19)
[2016-10-21] MEDS: ATORVASTATIN CALCIUM 40 MG TABLET PO SCH (10:20)
[2016-10-21] MEDS: ASPIRIN 325 MG TABLET PO SCH (10:20)
[2016-10-21] MEDS: LISINOPRIL 10 MG TABLET PO SCH (10:20)
[2016-10-21] MEDS: LATANOPROST 0.005% OPH SOLN 2.5 ML OP SCH (10:21)
--- NOTE | 2016-10-21 11:18 | PDOC PROGRESS REPORT ---
Subjective Progress Note for:: 10/21/16 Subjective:: Denies any complaints. Confused this morning Physical Exam Vital Signs: Temp Pulse Resp BP Pulse Ox 97.9 F 63 18 196/102 H 97 10/21/16 08:05 10/21/16 08:05 10/21/16 08:05 10/21/16 08:05 10/21/16 08:05 Intake & Output 10/20/16 10/21/16 10/22/16 06:59 06:59 06:59 Intake Total 2189 3304 Output Total 600 5400 Balance 1589 -2096 Weight 86.8 kg 85.9 kg General appearance: PRESENT: no acute distress Eye exam: PRESENT: conjunctiva pink. ABSENT: scleral icterus Mouth exam: PRESENT: moist, tongue midline Neck exam: ABSENT: JVD Respiratory exam: PRESENT: clear to auscultation disha. ABSENT: rales, rhonchi, wheezes Cardiovascular exam: PRESENT: RRR. ABSENT: diastolic murmur, rubs, systolic murmur GI/Abdominal exam: PRESENT: normal bowel sounds, soft. ABSENT: distended, guarding, mass, organolmegaly, rebound, tenderness Extremities exam: ABSENT: calf tenderness, clubbing, pedal edema Neurological exam: PRESENT: alert, awake, oriented to person, CN II-XII grossly intact, motor sensory deficit - Strength is 2 out of 5 on the right upper and lower extremity.. ABSENT: oriented to place, oriented to time, oriented to situation Psychiatric exam: PRESENT: agitated Skin exam: PRESENT: dry, intact, warm. ABSENT: cyanosis, rash Results Laboratory Results: 10/21/16 05:22 10/21/16 05:22 10/21/16 10/21/16 05:22 05:22 WBC 11.4 H RBC 4.70 Hgb 14.3 Hct 42.6 MCV 91 MCH 30.5 MCHC 33.6 RDW 13.5 Plt Count 248 Seg Neutrophils % 67.8 Lymphocytes % 16.4 Monocytes % 12.8 Eosinophils % 2.0 Basophils % 1.0 Absolute Neutrophils 7.7 Absolute Lymphocytes 1.9 Absolute Monocytes 1.5 H Absolute Eosinophils 0.2 Absolute Basophils 0.1 Sodium 145.0 Potassium 3.4 L Chloride 109 H Carbon Dioxide 26 Anion Gap 10 BUN 20 Creatinine 1.63 H Est GFR ( Amer) 51 L Est GFR (Non-Af Amer) 42 L Glucose 97 Calcium 9.0 10/19/16 10/19/16 10/19/16 10:58 10:58 17:22 Creatine Kinase 46 L 49 L CK-MB (CK-2) 1.58 Troponin I 0.031 10/19/16 10/19/16 10/19/16 17:22 23:00 23:09 Creatine Kinase 79 CK-MB (CK-2) 1.27 1.12 Troponin I 0.051 0.052 Impressions: Chest X-Ray 10/19/16 06:48 IMPRESSION: NO ACUTE RADIOGRAPHIC FINDING IN THE CHEST. Head CT 10/19/16 06:49 IMPRESSION: 1. Confluent diminished white matter density may indicate advanced white matter microangiopathy. Extensive differential diagnosis includes other white matter processes. Recommend MRI of the brain. 2. Lacunar infarcts of the right basal ganglia. Carotid Doppler Study 10/19/16 10:31 IMPRESSION: NO HEMODYNAMICALLY SIGNIFICANT STENOSIS. Head MRI 10/19/16 10:32 IMPRESSION: ATROPHY AND CHRONIC MICRO-VASCULAR ISCHEMIC CHANGES. Other white matter disease processes such as a demyelinating process cannot be excluded. Focal area of abnormal signal intensity in the basal ganglia on the left consistent with an area of recent infarction. Other findings as noted above Assessment & Plan - Diagnosis (1) CVA (cerebral vascular accident) Is this a current diagnosis for this admission?: YesPlan: Patient has right sided weakness along with facial droop and dysarthria are consistent with an acute CVA. Continue with aspirin 325 mg daily. Doppler showed no significant stenosis. MRI confirms the acute CVA. Echocardiogram shows no obvious mural thrombus. Continue with PT, OT and speech therapy (2) ARF (acute renal failure) Is this a current diagnosis for this admission?: YesPlan: We did not have any old lab values to see if this truly is acute or if this is chronic renal failure. He has been on hydrochlorothiazide we will hold that and continue IV fluids. (3) Hyperlipidemia Is this a current diagnosis for this admission?: YesPlan: Continue with his Lipitor that he has been taking as an outpatient (4) Hypertension Qualifiers: Hypertension type: essential hypertension Qualified Code(s): I10 - Essential (primary) hypertension Is this a current diagnosis for this admission?: YesPlan: Patient is started on Norvasc in addition to the lisinopril. - Time Time Spent with patient: 25-34 minutes - Inpatient Certification Medical Necessity: Need Close Monitoring Due to Risk of Patient Decompensation, Need for Neurological Checks
--- NOTE | 2016-10-21 13:17 | Physician Advisory Note ---
Physician Advisor ProgressNote .: Pursuant to the plan for [facility], I have reviewed the medical record for this patient. Physician Advisor Statement: Please consider documentin. "Acute Lt-sided thrombotic ___ artery* CVA with cerebral infarction Lt basal ganglia, with Rt dominant hemiparesis, [resolved or improved or persistent ] " *Ant or middle cerebral artery? 2. "ARF, possibly due to ___", or "CKD stage 3-4" 3. "hypertensive urgency" - vs. "hypertensive emergency with " [ resulting sx] Thanks! CK
[2016-10-21] MEDS ORDERED: ONDANSETRON HCL INJ/PF 4 MG/2 ML SDV IV PRN (15:11)
[2016-10-21] MEDS: LORAZEPAM 0.5 MG TABLET PO SCH ×2 (15:19→22:39)
[2016-10-22] MEDS: LABETALOL HCL INJ 20 MG/4 ML DISP.SYRIN IV PRN (00:16)
[2016-10-22] MEDS: NORMAL SALINE 1000 ML 1,000 ML IV PRN (00:26)
[2016-10-22 06:18] LABS: ABSOLUTE BASOPHILS # (AUTO) 0.1 10^3/uL (0.0-0.2); ABSOLUTE EOSINOPHILS # (AUTO) 0.4 10^3/uL (0.0-0.6); ABSOLUTE LYMPHOCYTES (AUTO) 2.2 10^3/uL (0.5-4.7); ABSOLUTE MONOCYTES (AUTO) 1.5 10^3/uL (0.1-1.4); ABSOLUTE NEUT (AUTO) 7.4 10^3/uL (1.7-8.2); BASOPHILS % (AUTO) 0.8 % (0-2); EOSINOPHILS % (AUTO) 3.1 % (0-6); HEMATOCRIT 43.4 % (37.9-51.0); HEMOGLOBIN 14.4 g/dL (13.5-17.0); HGB HCT DIFFERENCE -0.2; LYMPHOCYTES % (AUTO) 19.1 % (13-45); MEAN CORPUSCULAR HEMOGLOBIN 30.3 pg (27.0-33.4); MEAN CORPUSCULAR HGB CONC 33.2 g/dL (32.0-36.0); MEAN CORPUSCULAR VOLUME 91 fl (80-97); MONOCYTES % (AUTO) 12.6 % (3-13); RED BLOOD COUNT 4.76 10^6/uL (4.35-5.55); RED CELL DISTRIBUTION WIDTH 13.4 % (11.5-14.0); SEGMENTED NEUTROPHILS % (AUTO) 64.4 % (42-78); WHITE BLOOD COUNT 11.6 10^3/uL (4.0-10.5)
[2016-10-22 06:41] LABS: ANION GAP 10 (5-19); BLOOD UREA NITROGEN 20 mg/dL (7-20); CALCIUM 8.9 mg/dL (8.4-10.2); CARBON DIOXIDE 23 mmol/L (22-30); CHLORIDE 111 mmol/L (98-107); CREATININE RESULT 1.58 mg/dL (0.52-1.25); GLUCOSE 86 mg/dL (75-110); POTASSIUM 3.4 mmol/L (3.6-5.0); SODIUM 144.1 mmol/L (137-145)
[2016-10-22] MEDS: LORAZEPAM 0.5 MG TABLET PO SCH ×2 (06:57→13:25)
[2016-10-22] MEDS: ENOXAPARIN SODIUM INJ 40 MG/0.4 ML DISP.SYRIN SUBCUT SCH (08:36)
[2016-10-22] MEDS: AMLODIPINE BESYLATE 5 MG TABLET PO SCH (09:45)
[2016-10-22] MEDS: LISINOPRIL 10 MG TABLET PO SCH (09:46)
[2016-10-22] MEDS: FAMOTIDINE 20 MG TABLET PO SCH (09:46)
[2016-10-22] MEDS: ASPIRIN 325 MG TABLET PO SCH (09:47)
[2016-10-22] MEDS: ATORVASTATIN CALCIUM 40 MG TABLET PO SCH (09:47)
[2016-10-22] MEDS: LATANOPROST 0.005% OPH SOLN 2.5 ML OP SCH (09:48)
[2016-10-22] MEDS: PREDNISOLONE ACETATE 1% OPH SUSP 5 ML OD SCH (09:49)
[2016-10-22] MEDS: POLYVINYL ALCOHOL 1.4% OPH SOLN 15 ML OU SCH (09:49)
[2016-10-22] MEDS ORDERED: ISOSORBIDE MONONITRATE 60 MG TAB.ER.24H PO SCH (10:00)
--- NOTE | 2016-10-22 10:49 | PDOC TRANSFER SUMMARY ---
General - Admit/Disc Date/PCP Admission Date/Primary Care Provider: 10/19/16 10:25 MARIO STOUT MD Discharge Date: 10/22/16 - Discharge Diagnosis (1) CVA (cerebral vascular accident) Is this a current diagnosis for this admission?: YesSummary: MRI shows an acute left basilar ganglia infarction. Being treated with aspirin and statins (2) ARF (acute renal failure) Is this a current diagnosis for this admission?: YesSummary: Acute on chronic renal failure stage III. The patient's creatinine was as high as 1.9 but has decreased down to 1.6 with IV fluids. (3) Hyperlipidemia Is this a current diagnosis for this admission?: Yes (4) Hypertension Is this a current diagnosis for this admission?: Yes - Additional Information Resuscitation Status: Full Code Discharge Activity: Activity As Tolerated Home Medications: Acetazolamide [Diamox 250 mg Tab] 250 mg PO QID 10/19/16 Amlodipine Besylate [Norvasc 10 mg Tablet] 10 mg PO DAILY 10/19/16 Atorvastatin Calcium [Lipitor 40 mg Tablet] 40 mg PO QHS 10/19/16 Bee Pollen 550 mg PO DAILY 10/19/16 Calcium/Mag Oxide/Vitamin D3 [Coral Calcium Capsule] 500 mg PO DAILY 10/19/16 Carvedilol [Coreg 3.125 mg Tablet] 3.125 mg PO Q12 10/19/16 Cholecalciferol (Vitamin D3) [Vitamin D3 1000 Unit Tablet] 1,000 unit PO DAILY 10/19/16 Dextromethorphan HBr/Chlor-Mal [Coricidin Hbp Cough & Cold Tab] 1 tab PO Q6HP PRN 10/19/16 Garlic [Garlic Oil] 1,000 mg PO DAILY 10/19/16 Isosorbide Mononitrate [Imdur 60 mg Tablet.er] 60 mg PO DAILY 10/19/16 Krill/Warriors Mark-3/Dha/Epa/Lipids [Krill Oil 300 mg Softgel] 300 mg PO DAILY Prednisolone Acetate [Inflamase 1% Oph Susp 5 ml] 1 drop OD QID 10/19/16 [place] Jelly 250 mg PO DAILY 10/19/16 Tamsulosin HCl [Flomax 0.4 mg Cap.sr] 0.4 mg PO QHS 10/19/16 Ubidecarenone/Vit E Acetate [Co Q-10 100 mg Softgel] 1 cap PO DAILY 10/19/16 Vitamin E (Dl,Tocopheryl Acet) [Vitamin E] 400 unit PO DAILY 10/19/16 Aspirin [Aspirin 325 mg Tablet] 325 mg PO DAILY tablet 10/22/16 Atorvastatin Calcium [Lipitor 40 mg Tablet] 40 mg PO DAILY tablet 10/22/16 Latanoprost [Xalatan 0.005% Oph Soln 2.5 ml] 1 drop OP DAILY bottle 10/22/16 Lisinopril [Prinivil 10 mg Tablet] 40 mg PO DAILY tablet 10/22/16 History of Present Illness Admission Date/PCP: 10/19/16 10:25 MARIO STOUT MD History of Present Illness: LOLA JANG is a 70 year old male has had a previous CVA by his report who presents with right sided weakness. Patient reports that around 2 AM last night he began to experience right hand weakness was having trouble using it. He went to sleep when he awoke this morning his right hand weakness is worse and he also had dysarthria and right-sided facial droop and right leg involvement. The patient had a head CT that does not show any acute event. Patient does report that he has been taking aspirin 81 mg daily and he has been compliant with his medications. The patient denies any dysphasia. He has blindness in his right eye but that has been present prior to this acute episode. He also was noted to have very elevated blood pressures. The patient has received both labetalol and his usual lisinopril dose in the emergency room. The patient denies any sensory changes. He denies any bowel or bladder dysfunction. Denies having any fevers or chills. The patient has Imdur present in his medication bag and when asked if he had any cardiac issues he denied knowing whether or not he had any heart issues. Hospital Course Hospital Course: 70-year-old gentleman who presented with right-sided weakness. The patient was found to have an acute CVA on the MRI. CVA was in the left basilar ganglia. He had been on 81 mg aspirin prior to admission this was increased to 325 mg. The patient had carotid Dopplers which showed no significant stenosis. Patient was evaluated by PT and OT and it was thought he would benefit from short-term [facility] facility rehabilitation. He is being transferred to [facility]. Patient while hospitalized did have elevation of his blood pressures but they are under better control. He also did have an episode of confusion. This has resolved and he is back to his baseline mental status. Physical Exam Vital Signs: Temp Pulse Resp BP Pulse Ox 97.7 F 67 20 165/88 H 96 10/22/16 07:36 10/22/16 08:00 10/22/16 08:00 10/22/16 08:00 10/22/16 08:00 Intake & Output 10/21/16 10/22/16 10/23/16 06:59 06:59 06:59 Intake Total 3304 3604 Output Total 5400 2575 Balance -2096 1029 Weight 85.9 kg 90.2 kg General appearance: PRESENT: no acute distress Head exam: PRESENT: atraumatic, normocephalic Eye exam: PRESENT: conjunctiva pink. ABSENT: scleral icterus Ear exam: PRESENT: normal external ear exam Mouth exam: PRESENT: moist, tongue midline Neck exam: ABSENT: JVD Respiratory exam: PRESENT: clear to auscultation disha. ABSENT: rales, rhonchi, wheezes Cardiovascular exam: PRESENT: RRR. ABSENT: diastolic murmur, rubs, systolic murmur GI/Abdominal exam: PRESENT: normal bowel sounds, soft. ABSENT: distended, guarding, mass, organolmegaly, rebound, tenderness Extremities exam: ABSENT: calf tenderness, clubbing, pedal edema Neurological exam: PRESENT: alert, awake, oriented to person, oriented to place , oriented to time, oriented to situation, motor sensory deficit - Right facial droop Psychiatric exam: PRESENT: appropriate affect Skin exam: PRESENT: dry, intact, warm. ABSENT: cyanosis, rash Results Laboratory Results: 10/22/16 05:56 10/22/16 05:56 10/22/16 10/22/16 05:56 05:56 WBC 11.6 H RBC 4.76 Hgb 14.4 Hct 43.4 MCV 91 MCH 30.3 MCHC 33.2 RDW 13.4 Plt Count 233 Seg Neutrophils % 64.4 Lymphocytes % 19.1 Monocytes % 12.6 Eosinophils % 3.1 Basophils % 0.8 Absolute Neutrophils 7.4 Absolute Lymphocytes 2.2 Absolute Monocytes 1.5 H Absolute Eosinophils 0.4 Absolute Basophils 0.1 Sodium 144.1 Potassium 3.4 L Chloride 111 H Carbon Dioxide 23 Anion Gap 10 BUN 20 Creatinine 1.58 H Est GFR ( Amer) 52 L Est GFR (Non-Af Amer) 43 L Glucose 86 Calcium 8.9 10/19/16 10/19/16 10/19/16 10:58 10:58 17:22 Creatine Kinase 46 L 49 L CK-MB (CK-2) 1.58 Troponin I 0.031 10/19/16 10/19/16 10/19/16 17:22 23:00 23:09 Creatine Kinase 79 CK-MB (CK-2) 1.27 1.12 Troponin I 0.051 0.052 Impressions: Chest X-Ray 10/19/16 06:48 IMPRESSION: NO ACUTE RADIOGRAPHIC FINDING IN THE CHEST. Head CT 10/19/16 06:49 IMPRESSION: 1. Confluent diminished white matter density may indicate advanced white matter microangiopathy. Extensive differential diagnosis includes other white matter processes. Recommend MRI of the brain. 2. Lacunar infarcts of the right basal ganglia. Carotid Doppler Study 10/19/16 10:31 IMPRESSION: NO HEMODYNAMICALLY SIGNIFICANT STENOSIS. Head MRI 10/19/16 10:32 IMPRESSION: ATROPHY AND CHRONIC MICRO-VASCULAR ISCHEMIC CHANGES. Other white matter disease processes such as a demyelinating process cannot be excluded. Focal area of abnormal signal intensity in the basal ganglia on the left consistent with an area of recent infarction. Other findings as noted above Transfer Plan - Disposition Transfer Plan: Transfer to [facility] in [facility] - Time Spent with Patient Time spent with patient: Greater than 30 Minutes Qualifiers PATEINT BEING DISCHARGED WITH ANY OF THE FOLLOWING DIAGNOSIS?: Stroke Stroke Pt being discharged on Anti-thrombolytic therapy?: Yes Stroke Pt being discharged on Anti-coagulation therapy?: No Reason(s) for not prescribing Anti-coagulation therapy:: Not indicated Stroke Pt being discharged on Statins?: Yes Plan Discharge Plan: Discharge to [facility] and [facility] Time Spent: Greater than 30 Minutes
[2016-10-22 15:25] VITALS: BP 229/119
== END 2016-10-22 16:44 | DRG 65 ==
LOC: ER 06:24 → EH 10:25 → UNDOADMIN 11:32 → EH 11:32 → 3N 13:16 → EH 13:16 → 3S 10-20 18:48
PROVIDERS: ADMIT Internal Medicine; ATTEND Internal Medicine
DX: I63.8 Other cerebral infarction (principal); N17.9 Acute kidney failure, unspecified; I12.9 Hypertensive chronic kidney disease with stage 1 through stage 4 chronic kidney disease, or unspecified chronic kidney disease; N18.3 Chronic kidney disease, stage 3 (moderate); I69.322 Dysarthria following cerebral infarction; I69.392 Facial weakness following cerebral infarction; E78.5 Hyperlipidemia, unspecified; Z79.899 Other long term (current) drug therapy; Z79.82 Long term (current) use of aspirin; H54.41 Blindness, right eye, normal vision left eye; Z85.528 Personal history of other malignant neoplasm of kidney; Z90.5 Acquired absence of kidney; Z88.8 Allergy status to other drugs, medicaments and biological substances
CPT/HCPCS: 36415; 51702; 70450; 70551; 71010; 80048; 80053; 81001; 82550; 82553; 83690; 83735; 84484; 85025; 85027; 85610; 93005; 93010; 93306; 93880; 96374; 96376; 99291; G8978-GP; G8979-GP; G8987-GO; G8988-GO; G8999-GN; G9186-GN; J0360; J1650; J3490; J7030